=== PATIENT | female | born 1985 | race Two or more races ===

== ENCOUNTER 2023-10-09 06:40 | Emergency (ER) | payer OTHER, SELFPAY ==
[2023-10-09 06:45] VITALS: BP 117/73
[2023-10-09 07:22] VITALS: BP 102/72
[2023-10-09 07:29] LABS: % Basophils 1.1 % (0-2); % Eosinophils 2.4 % (0-6); % Immature Granulocytes 0.3 % (0-0.5); % Monocytes 14.1 % (1.7-9.3); % Neutrophils 60.1 % (42.2-75.2); Absolute Eosinophils 0.1 10^3/uL (0-0.7); Absolute Lymphocytes 0.8 10^3/uL (1.2-3.4); Absolute Monocytes 0.5 10^3/uL (0.1-0.6); Absolute Neutrophils 2.2 10^3/uL (1.4-6.5); Hematocrit 36.1 % (37.0-47.0); Hemoglobin 12.3 g/dL (12.0-16.0); Mean Corp Hgb Conc. 34.1 g/dL (33.0-37.0); Mean Platelet Volume 10.1 fL (7.4-10.4); Nucleated Red Blood Cells % 0 %; Platelet Count 221 10^3/uL (130-400); White Blood Cell Count 3.7 10^3/uL (4.8-10.8)
[2023-10-09 07:54] LABS: ALT (SGPT) 16 U/L (0-35); AST (SGOT) 21 U/L (14-36); Albumin 4.8 g/dl (3.5-5.0); Alkaline Phosphatase 54 U/L (38-126); Blood Urea Nitrogen 14 mg/dl (7-17); Calcium 9.6 mg/dl (8.4-10.2); Carbon Dioxide 27 mmol/L (22-30); Chloride 105 mmol/L (98-107); Glucose 96 mg/dl (70-99); Lipase 97 U/L (23-300); Potassium 3.8 mmol/L (3.5-5.1); Sodium 138 mmol/L (135-145); Total Bilirubin 0.4 mg/dl (0.2-1.3); Total Protein 7.5 g/dl (6.3-8.2); eGFR > 60.00
[2023-10-09 07:57] LABS: HCG, Serum Qualitative Screen Negative
[2023-10-09 08:00] VITALS: BP 120/84
--- NOTE | 2023-10-09 08:10 | ED.GENMED ---
History of Present Illness
General
Chief Complaint: Abdominal Pain
Source: patient
Exam Limitations: none
Time Seen by Provider: 10/09/23 07:09
Nursing documentation reviewed up to this point in time: agreed with
History of Present Illness
History of Present Illness:
38 y/o F with h/o gastritis
here with 3 weeks ongoing burning in her epigastric region making it difficult to eat/drink without pain
she also has had bloating and change in stools, greenish color
she has not had any mucus, fever, vomiting, black tarry stools
pt is chronically on omeprazole after endoscopy in may in [facility]
she feels worse the past 3 weeks
she is under stress but no alcohol, smoking, drugs, and pt says she has a bland diet as well
no nsaids
no h/o GI bleeding
has appt with gi but not for another month
says she takes her omeprazole on empty stomach
she also used a liquid antacid without relief
pt syas 'i can't take it anymore'
Past History
Past History
ED Past Medical History: GERD
ED Past Surgical History: Other (endoscopies)
Phy Exam
Physical Exam
Physical Exam:
GENERAL: Alert , in no apparent distress, very well-appearing
EYE: pupils equal and reactive
NECK: Supple
ENT: o/p clr, mmm.
CARDIAC: Regular rate and rhythm .
LUNGS: Clear breath sounds bilaterally, no acute respiratory distress, no wheezes/rales/rhonchi
ABDOMEN: Soft, without focal tenderness, no r/g, no cvat, normal bowel sounds
Heme-negative light brown stool
NEUROLOGICAL: Alert and oriented, no focal neuro deficits
SKIN: Warm and dry, skin intact.
MUSCULOSKELETAL: No edema, well perfused.
PSYCH: Normal and appropriate interaction.
Course
Orders/Labs/Results
Orders:
Orders
10/09/23 07:09
Test Result ONCE
10/09/23 07:19
CMP [Comprehensive Metabolic Panel] Urgent
Complete Blood Count/With Diff Urgent
HCG, Serum Qualitative Screen Urgent
Lipase Urgent
10/09/23 08:06
Pantoprazole [Protonix IV] 40 mg IV NOW STA
Sucralfate Suspension [Carafate Suspension] 1 gm PO NOW STA
US Abdomen Complete/Upper Urgent
Comment:
Reason For Exam: upper abd pain
10/09/23 08:34
Urinalysis Reflex To Culture Urgent
Date Specimen was Collected: 10/09/23
Time Specimen was Collected: 07:09
Abnormal Lab Results
10/09/23
07:19
WBC 3.7 L 10^3/uL
(4.8-10.8)
RBC 4.10 L 10^6/uL
(4.20-5.40)
Hct 36.1 L %
(37.0-47.0)
Absolute Lymphs (auto) 0.8 L 10^3/uL
(1.2-3.4)
Monocytes % 14.1 H %
(1.7-9.3)
10/09/23 07:19
10/09/23 07:19
Vital Signs
Initial and Last Documented VS:
Initial Vital Signs
Temp Pulse Resp BP Pulse Ox
98.4 F 75 16 117/73 100
10/09/23 06:45 10/09/23 06:45 10/09/23 06:45 10/09/23 06:45 10/09/23 06:45
Last Documented Vital Signs
Temp Pulse Resp BP Pulse Ox
98.4 F 74 15 97/66 99
10/09/23 06:45 10/09/23 08:33 10/09/23 08:33 10/09/23 10:00 10/09/23 10:30
MDM/Problems Addressed
Differential Diagnosis Includes:
gerd, gastritis, PUD, IBS, SIBO
MDM/Problems Addressed:
38 y/o F with h/o gastritis
on PPI
here with ongogin 3 weeks of wrosening gerd sypmtoms, severe burning in stomach worse with eating
no nauesa/vomiting/diarrhea
but her stool is greenish
not black
the pain is epigastric and feels like burnign but then she also feels bloated
has ahd endoscopy previously no ulcers but gastritis
on exam, well appearing
nontender abdomen
looks comfortable
no vomiting
labs reviewed, unremarkable
us neg
patient's pain improved with carafate
she is already on omeprazole taking it properly
will add carafate qid prn
has appt with her gi in 4 weeks, try to move up appt
d/c home
pt requesting prn nausea med, will give a few zofran
*Critical Care Note
Total Time (30-74mins, 75-104mins- exclusive of procedures): Not Applicable
ED Attending Note
-
Portions of this chart may have been created with voice recognition software.� Occasional wrong word or��sound alike� substitutions may have occurred due to the inherent limitations of voice recognition software.
Discharge Plan
Departure
Patient Disposition: Home (Routine Discharge)
Date of Disposition: 10/09/23
Time of Disposition: 10:36
Patient with high blood pressure during this ER visit?: No
Condition: Fair
Covid-19: Not Applicable
Discharge Problem:
Gastritis
Instructions: Gastritis (DC)
Prescriptions:
New
sucralfate [Carafate] 100 mg/mL suspension
10 ml PO ACHS PRN (Reason: GASTRITIS) Qty: 400 0RF
ondansetron 4 mg tablet,disintegrating
4 mg PO Q8H PRN (Reason: nausea and vomiting) 2 Days Qty: 6 0RF
No Action
Control Pill
1 tab PO DAILY
Referrals:
Pardeep Freitas MD [Family Provider] - Follow up in 2-3 days
Activity Restrictions/Additional Instructions:
YOU SHOULD CONTINUE A BLAND DIET
CONTINUE YOUR OMEPRAZOLE ON AN EMPTY STOMACH WITH WATER AND WAIT 45 MIN BEFORE EATING
TAKE CARAFATE 3-4 TIMES A DAY NEEDED FOR BURNING IN YOUR STOMACH
NEEDED FO RNAUSEA YOU CAN TRY ZOFRAN 4 MG EVERY 8 HOURS
PLEASE FOLLO W UP WITH YOUR GI DOCTOR
RETURN FOR: SEVERE PAIN, VOMITING, VOMITING BLOOD, BLACK STOOL, FEVER OR ANY CONCERNS.
Interventions
Interventions:
*Risk Screen - Suicide Last Done: 10/09/23 06:45
*General Assessment Last Done: 10/09/23 07:02
*Neglect/Abuse Screening Last Done: 10/09/23 06:45
ED- Fall Risk Assessment Last Done: 10/09/23 06:45
*ED COVID-19 Vaccine History Last Done: 10/09/23 06:45
*Nursing Disposition Last Done: 10/09/23 10:58
XZ-Rrrvvn-Iznkqvkzhx Assessment Last Done: 10/09/23 07:21
Discharge Date and Time
Discharge Date/Time: 10/09/23 10:59
Print Language: KHMER
[2023-10-09] MEDS: CARAFATE SUSPENSION 1 GM PO (08:31)
[2023-10-09] MEDS: PROTONIX IV 40 MG IV (08:31)
[2023-10-09 08:33] VITALS: BP 120/84
[2023-10-09 08:42] LABS: Urine Albumin Negative (Neg - Trace); Urine Bilirubin Negative (Negative); Urine Character Clear (Clear); Urine Color Yellow; Urine Glucose Negative (Negative); Urine Ketone Negative (Negative); Urine Leukocyte Negative (Negative); Urine Nitrite Negative (Negative); Urine Occult Blood Negative (Negative); Urine Urobilinogen Negative (Neg - 1+); Urine pH 6.5 (5.0-9.0)
[2023-10-09 09:34] VITALS: BP 97/69
[2023-10-09 10:00] VITALS: BP 97/66
== END 2023-10-09 10:59 | disposition home or self-care (01) ==
LOC: EMR 06:40
PROVIDERS: EMERGENCY PHYSICIAN Emergency Medicine; FAMILY PHYSICIAN Internal Medicine
DX: K29.70 Gastritis, unspecified, without bleeding (principal); K21.9 Gastro-esophageal reflux disease without esophagitis; Z87.19 Personal history of other diseases of the digestive system
CPT/HCPCS: 99284; 96374; 76700; 80053; 81003; 81015; 83690; 84703; 85025

== ENCOUNTER 2023-10-09 20:56 | Emergency (ER) | payer OTHER, SELFPAY ==
[2023-10-09 21:04] VITALS: BP 136/91; BMI 20.1
[2023-10-09 22:35] VITALS: BP 116/75
--- NOTE | 2023-10-09 22:59 | ED.GENMED ---
History of Present Illness
General
Chief Complaint: Abdominal Pain
Source: patient
Exam Limitations: none
Time Seen by Provider: 10/09/23 22:38
Nursing documentation reviewed up to this point in time: agreed with
History of Present Illness
History of Present Illness:
38-year-old female presents with abdominal pain seen here earlier had blood work test and ultrasound discharged home with a diagnosis of gastritis mid abdominal pain now diffuse no nausea vomit no diarrhea, has had 3 children no prior
abdominal surgeries, has had bladder surgery at the [facility] few months ago, she is originally from [place] now living in the , feels feverish since discharge
Past History
Past History
ED Past Medical History: GERD
ED Past Surgical History: Urological and Other (endoscopies, bladder surgery)
Social History
Tobacco: Non-smoker
Alcohol: None
Drug: None
Personal:
Living: with family
Employment: Employed
Review of Systems
Review of Systems
All Other Systems: Not applicable
Constitutional: Reports fever
EENT: Reports no symptoms
Respiratory: Reports no symptoms
Cardiac: Reports no symptoms
ABD/GI: Reports abdominal pain
: Reports no symptoms
Musculoskeletal: Reports no symptoms
Phy Exam
Physical Exam
Physical Exam:
Physical Exam
General: no apparent distress, not acutely ill
Neck: No jaundice
Heart: s1/s2 regular rate and rhythm, no murmur. equal radial pulses.
Lungs: no acute respiratory distress. clear bilaterally
Abdomen: Soft epigastric and left lower quadrant tenderness no right lower quadrant
Neuro: alert and oriented. no focal neurological deficits
Skin: no rash
Psychiatric: well kept. interactive and cooperative
Extremities: no edema.
Course
Orders/Labs/Results
Orders:
Orders
10/09/23 22:48
0.9% Sodium Chloride 1000 ml [Nss] 1,000 ml IV BOLUS
Iohexol [Omnipaque] See Protocol PO NOW STA
Ketorolac [Toradol] 30 mg IV NOW STA
Pantoprazole [Protonix IV] 40 mg IV NOW STA
10/09/23 22:49
Test Result ONCE
10/09/23 22:59
Complete Blood Count/With Diff Urgent
Comprehensive Metabolic Panel Urgent
HCG, Serum Qualitative Screen Urgent
Lipase Urgent
10/09/23 23:22
Urinalysis Reflex To Culture Urgent
Date Specimen was Collected: 10/09/23
Time Specimen was Collected: 23:21
Urine Microscopic Reflex Cult Urgent
10/10/23 00:00
CT Abd/pel W Iv And Oral Contr Urgent
Reason For Exam: pain
10/10/23 01:56
Magnesium Citrate [Citroma] 300 ml PO ONCE ONE
Abnormal Lab Results
10/09/23 10/09/23
22:59 23:22
WBC 3.8 L 10^3/uL
(4.8-10.8)
Hct 36.4 L %
(37.0-47.0)
Absolute Lymphs (auto) 1.0 L 10^3/uL
(1.2-3.4)
Monocytes % 10.8 H %
(1.7-9.3)
Ur Occult Blood Reflex 1+ A
(Negative)
Urine RBC 7-10 A /HPF
(0-2)
Urine Bacteria (Reflex) Few A
(Negative)
10/09/23 22:59
10/09/23 22:59
Vital Signs
Initial and Last Documented VS:
Initial Vital Signs
Temp Pulse Resp BP Pulse Ox
99.2 F 85 16 136/91 100
10/09/23 21:04 10/09/23 21:04 10/09/23 21:04 10/09/23 21:04 10/09/23 21:04
Last Documented Vital Signs
Temp Pulse Resp BP Pulse Ox
99.2 F 69 16 120/79 100
10/09/23 21:04 10/10/23 00:30 10/10/23 00:30 10/10/23 00:00 10/10/23 00:30
MDM/Problems Addressed
Differential Diagnosis Includes:
Colitis diverticulitis biliary colic appendicitis
MDM/Problems Addressed:
Abdominal
*Critical Care Note
Total Time (30-74mins, 75-104mins- exclusive of procedures): Not Applicable
Update Note
Update Note:
Update labs noted CAT scan noted patient looks comfortable, states she has not had a bowel movement for about 2 days, will start on a bowel regimen with some Bentyl
ED Attending Note
-
Portions of this chart may have been created with voice recognition software.� Occasional wrong word or��sound alike� substitutions may have occurred due to the inherent limitations of voice recognition software.
Discharge Plan
Departure
Patient Disposition: Home (Routine Discharge)
Date of Disposition: 10/10/23
Time of Disposition: 01:55
Patient with high blood pressure during this ER visit?: No
Condition: Good
Covid-19: Not Applicable
Discharge Problem:
Abdominal pain
Instructions: Constipation, Adult (DC), Abdominal Pain
Prescriptions:
New
dicyclomine 20 mg tablet
20 mg PO QID PRN (Reason: abdominal pain) Qty: 14 0RF
polyethylene glycol 3350 [Miralax] 17 gram/dose powder
4 g PO DAILY PRN (Reason: Constipation) Qty: 119 0RF
No Action
Control Pill
1 tab PO DAILY
sucralfate [Carafate] 100 mg/mL suspension
10 ml PO ACHS PRN (Reason: GASTRITIS) Qty: 400 0RF
ondansetron 4 mg tablet,disintegrating
4 mg PO Q8H PRN (Reason: nausea and vomiting) 2 Days Qty: 6 0RF
Referrals:
Pardeep Freitas MD [Family Provider] - Next open appointment
Interventions
Interventions:
*Risk Screen - Suicide Last Done: 10/09/23 21:04
*General Assessment Last Done: 10/09/23 22:39
*Neglect/Abuse Screening Last Done: 10/09/23 21:04
ED- Fall Risk Assessment Last Done: 10/09/23 21:04
*ED COVID-19 Vaccine History Last Done: 10/09/23 22:39
OV-Ttyact-Ywqetfunql Assessment Last Done: 10/09/23 22:40
Discharge Date and Time
Print Language: SWEDISH
[2023-10-09 23:00] VITALS: BP 116/77
[2023-10-09 23:11] LABS: % Basophils 0.8 % (0-2); % Eosinophils 1.1 % (0-6); % Immature Granulocytes 0.3 % (0-0.5); % Lymphocytes 26.6 % (20.5-51.1); % Monocytes 10.8 % (1.7-9.3); % Neutrophils 60.4 % (42.2-75.2); Absolute Monocytes 0.4 10^3/uL (0.1-0.6); Absolute Neutrophils 2.3 10^3/uL (1.4-6.5); Hematocrit 36.4 % (37.0-47.0); Hemoglobin 12.8 g/dL (12.0-16.0); Mean Corp Hgb Conc. 35.2 g/dL (33.0-37.0); Mean Corpuscular Hgb 30.4 pg (27.0-31.0); Mean Corpuscular Volume 86.5 fL (81.0-99.0); Mean Platelet Volume 10.2 fL (7.4-10.4); Nucleated Red Blood Cells % 0 %; Platelet Count 205 10^3/uL (130-400); Red Blood Cell Count 4.21 10^6/uL (4.20-5.40); Red Cell Dist. Width 12.1 % (11.5-14.5); White Blood Cell Count 3.8 10^3/uL (4.8-10.8)
[2023-10-09] MEDS: PROTONIX IV 40 MG IV (23:11)
[2023-10-09] MEDS: OMNIPAQUE 50 ML PO (23:11)
[2023-10-09] MEDS: NSS 1000 IV (23:13)
[2023-10-09] MEDS: TORADOL 30 MG IV (23:14)
[2023-10-09 23:24] LABS: HCG, Serum Qualitative Screen Negative
[2023-10-09 23:29] LABS: Urine Albumin Negative (Neg - Trace); Urine Bilirubin Negative (Negative); Urine Character Clear (Clear); Urine Color Yellow; Urine Glucose Negative (Negative); Urine Ketone Negative (Negative); Urine Leukocyte Negative (Negative); Urine Nitrite Negative (Negative); Urine Occult Blood 1+ (Negative); Urine Urobilinogen Negative (Neg - 1+)
[2023-10-09 23:34] LABS: ALT (SGPT) 16 U/L (0-35); AST (SGOT) 29 U/L (14-36); Albumin 4.7 g/dl (3.5-5.0); Alkaline Phosphatase 49 U/L (38-126); Blood Urea Nitrogen 15 mg/dl (7-17); Calcium 9.4 mg/dl (8.4-10.2); Carbon Dioxide 24 mmol/L (22-30); Chloride 104 mmol/L (98-107); Estimated Creatinine Clearance 86 ml/min; Glucose 96 mg/dl (70-99); Lipase 93 U/L (23-300); Potassium 4.1 mmol/L (3.5-5.1); Sodium 136 mmol/L (135-145); Total Bilirubin 0.5 mg/dl (0.2-1.3); Total Protein 7.7 g/dl (6.3-8.2); eGFR > 60.00
[2023-10-10] VITALS: BP 120/79
[2023-10-10] LABS: Urine Bacteria Few (Negative); Urine White Cell 0-2 /HPF (0-5)
[2023-10-10 01:00] VITALS: BP 108/68
[2023-10-10 02:00] VITALS: BP 117/77
[2023-10-10 02:05] VITALS: BP 117/77
[2023-10-10] MEDS: CITROMA 300 ML PO (02:08)
== END 2023-10-10 02:15 | disposition home or self-care (01) ==
LOC: EMR 20:56
PROVIDERS: EMERGENCY PHYSICIAN Emergency Medicine; FAMILY PHYSICIAN Internal Medicine
DX: R10.9 Unspecified abdominal pain (principal); K21.9 Gastro-esophageal reflux disease without esophagitis
CPT/HCPCS: 74177; 80053; 81003; 81015; 83690; 84703; 85025; 96361; 96374; 96375; 99284; Q9967

== ENCOUNTER 2024-06-23 05:38 | Emergency (ER) | payer OTHER, SELFPAY ==
[2024-06-23 05:41] VITALS: BP 102/59
[2024-06-23 06:19] LABS: Urine Albumin 1+ (Neg - Trace); Urine Bilirubin Negative (Negative); Urine Character Clear (Clear); Urine Color Yellow; Urine Glucose Negative (Negative); Urine Ketone Negative (Negative); Urine Leukocyte Negative (Negative); Urine Nitrite Positive (Negative); Urine Occult Blood 2+ (Negative); Urine Urobilinogen Negative (Neg - 1+)
[2024-06-23 06:32] LABS: Urine Squamous Cell >30 /LPF (Few)
[2024-06-23 06:33] LABS: Urine Bacteria Few (Negative); Urine White Cell 0-2 /HPF (0-5)
[2024-06-23 07:08] LABS: HCG, Urine Qualitative Screen Negative
--- NOTE | 2024-06-23 07:16 | ED.GENMED ---
History of Present Illness
General
Chief Complaint: Urinary Symptoms
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
Exam Limitations: none
Time Seen by Provider: 06/23/24 06:18
Nursing documentation reviewed up to this point in time: agreed with
History of Present Illness
History of Present Illness:
38 yo female presents to the emergency department c/o suprapubic discomfort since yesterday am. She has had cystitis and fulguration in July by Dr. Khoury at [place].
Past History
Past History
ED Past Medical History: GERD
ED Past Surgical History: Urological and Other (endoscopies, bladder surgery)
Social History
Tobacco: Non-smoker
Alcohol: None
Drug: None
Personal:
Living: with family
Employment: Employed
Review of Systems
Review of Systems
Allergies reviewed?: Yes
All Other Systems: Not applicable
Constitutional: Reports no symptoms; Denies fever
EENT: Reports no symptoms
Respiratory: Reports no symptoms
Cardiac: Reports no symptoms
ABD/GI: Reports no symptoms
: Reports dysuria, frequency, difficulty voiding and urgency
Musculoskeletal: Reports no symptoms
Skin: Reports no symptoms
Neurological: Reports no symptoms
Endocrine: Reports no symptoms
Hematologic/Lymphatic: Reports no symptoms
Psychiatric: Reports no symptoms
Phy Exam
Physical Exam
Physical Exam:
Physical Exam
General: no apparent distress, not acutely ill
Neck: supple. no meningeal signs. normal posterior pharynx
Heart: s1/s2 regular rate and rhythm, no murmur. equal radial
pulses.
HEENT: Pupils equal round reactive to light, EOMI
Lungs: no acute respiratory distress. clear bilaterally
Abdomen: normal bowel sounds. mild suprapubic tender. no CVAT
Neuro: alert and oriented. no focal neurological deficits cranial nerves II through XII intact
Skin: no rash
Psychiatric: well kept. interactive and cooperative
Extremities: no edema. no calf tenderness. negative homans. good distal pulses
Course
Orders/Labs/Results
Orders:
Orders
06/23/24 06:05
HCG, Urine Qualitative Screen Urgent
Date Specimen was Collected: 06/23/24
Time Specimen was Collected: 05:58
Urinalysis Reflex To Culture Urgent
Date Specimen was Collected: 06/23/24
Time Specimen was Collected: 05:58
Urine Microscopic Reflex Cult Urgent
Urine Culture Urgent
EL Source: U
Specimen Description:
Date Specimen was Collected: 06/23/24
Time Specimen was Collected: 05:58
06/23/24 06:44
Add On- LAB Urgent
Tests Added?: urine HCG
06/23/24 07:14
Cephalexin Monohydrate [Keflex] 500 mg PO NOW STA
Phenazopyridine HCl [Pyridium] 200 mg PO NOW STA
Abnormal Lab Results
06/23/24
06:05
Ur Occult Blood Reflex 2+ A
(Negative)
Urine Nitrite (Reflex) Positive A
(Negative)
Urine RBC 3-6 A /HPF
(0-2)
Urine Bacteria (Reflex) Few A
(Negative)
Urine Albumin (Reflex) 1+ A
(Neg - Trace)
Vital Signs
Initial and Last Documented VS:
Initial Vital Signs
Temp Pulse Resp BP Pulse Ox
98.4 F 73 12 102/59 98
06/23/24 05:41 06/23/24 05:41 06/23/24 05:41 06/23/24 05:41 06/23/24 05:41
Last Documented Vital Signs
Temp Pulse Resp BP Pulse Ox
98.4 F 73 12 102/59 98
06/23/24 05:41 06/23/24 05:41 06/23/24 05:41 06/23/24 05:41 06/23/24 05:41
MDM/Problems Addressed
Differential Diagnosis Includes:
UTI, ectopic , cystitis
MDM/Problems Addressed:
38 yo female with cystitis. Treat with keflex, pyridium. Abdomen exam benign. Follow-up with urology and primary care. Return precautions given
Chronic conditions affecting care: Other (Prior cystitis)
*Pulse Oximetry
Patient hypoxic: no
*Critical Care Note
Total Time (30-74mins, 75-104mins- exclusive of procedures): Not Applicable
Data Reviewed
Review of Other/Old Records Reveals: Other (Discharge instructions from patient records for fulguration)
Further Testing Considered But Not Given:
CT abdomen pelvis not indicated
Patient Management
Social determinants of health affecting care: Living situation
Escalation/DeEscalation of care consider admission/obs:
Admit not indicated
ED Attending Note
-
Portions of this chart may have been created with voice recognition software.� Occasional wrong word or��sound alike� substitutions may have occurred due to the inherent limitations of voice recognition software.
Discharge Plan
Departure
Patient Disposition: Home (Routine Discharge)
Date of Disposition: 06/23/24
Time of Disposition: 07:24
Patient with high blood pressure during this ER visit?: No
Condition: Good
Discharge Problem:
Cystitis
Instructions: Urinary Tract Infection, Adult (DC)
Prescriptions:
New
cephalexin 500 mg capsule
500 mg PO BID 5 Days Qty: 10 0RF
phenazopyridine [Pyridium] 200 mg tablet
200 mg PO TID PRN (Reason: Pain) Qty: 10 0RF
No Action
Control Pill
1 tab PO DAILY
sucralfate [Carafate] 100 mg/mL suspension
10 ml PO ACHS PRN (Reason: GASTRITIS) Qty: 400 0RF
ondansetron 4 mg tablet,disintegrating
4 mg PO Q8H PRN (Reason: nausea and vomiting) 2 Days Qty: 6 0RF
dicyclomine 20 mg tablet
20 mg PO QID PRN (Reason: abdominal pain) Qty: 14 0RF
polyethylene glycol 3350 [Miralax] 17 gram/dose powder
4 g PO DAILY PRN (Reason: Constipation) Qty: 119 0RF
Referrals:
Pardeep Freitas MD [Family Provider] - Call in 1-3 days for appt
Grey Khoury MD [Non-Admitting Privileges] - Call in 1-3 days for appt
Interventions
Interventions:
*Risk Screen - Suicide Last Done: 06/23/24 05:41
*General Assessment Last Done: 06/23/24 05:55
*Neglect/Abuse Screening Last Done: 06/23/24 05:55
*ED- Fall Risk Assessment Last Done: 06/23/24 05:55
*ED COVID-19 Vaccine History Last Done: 06/23/24 05:55
Discharge Date and Time
Print Language: ARMENIAN
[2024-06-23] MEDS: Pyridium 200 MG PO (07:41)
[2024-06-23] MEDS: KEFLEX 500 MG PO (07:42)
[2024-06-23 07:53] VITALS: BP 116/72
== END 2024-06-23 07:53 | disposition home or self-care (01) ==
LOC: EMR 05:38
PROVIDERS: Emergency Medicine; EMERGENCY PHYSICIAN Emergency Medicine; FAMILY PHYSICIAN Internal Medicine
DX: N30.90 Cystitis, unspecified without hematuria (principal); K21.9 Gastro-esophageal reflux disease without esophagitis
CPT/HCPCS: 99283; 81003; 81015; 81025; 87086